=== PATIENT | female | born 1955 | race Caucasian/White ===

== ENCOUNTER 2018-07-05 20:16 | Observation (INO) | payer OTHER, SELFPAY ==
[2018-07-05] MEDS: NS 500 ML IV (21:02)
[2018-07-05] MEDS: HYDROMORPHONE HCL 0.5 MG/ 0.5 ML SYRINGE (J1170 PER 1) IV ×2 (21:03→22:20)
[2018-07-05 21:07] LABS: BASO % 0.3 % (0.0-1.0); EOS % 0.1 % (0.0-3.0); IMMATURE GRANULOCYTE % 0.4 % (0-3.0); LYMPH # 0.8 10^3/uL (1.5-4.5); LYMPH % 5.4 % (24.0-44.0); MEAN CORPUSCULAR HEMOGLOBIN 27.4 pg (27.0-33.0); MEAN CORPUSCULAR HGB CONC 31.7 g/dl (32.0-36.5); MEAN CORPUSCULAR VOLUME 86.5 fl (80.0-96.0); MONO # 0.7 10^3/uL (0.0-0.8); MONO % 4.3 % (0.0-5.0); NEUTROPHILS # 13.8 10^3/uL (1.8-7.7); NEUTROPHILS % 89.5 % (36.0-66.0); PLATELET COUNT, AUTOMATED 281 10^3/uL (150-450); RED BLOOD COUNT 4.74 10^6/uL (4.00-5.40); RED CELL DISTRIBUTION WIDTH 14.4 % (11.5-14.5); WHITE BLOOD COUNT 15.4 10^3/uL (4.0-10.0)
[2018-07-05 21:17] LABS: INR 0.98; PROTHROMBIN TIME 13.1 SECONDS (12.1-14.4)
[2018-07-05 21:18] LABS: PARTIAL THROMBOPLASTIN TIME 27.6 SECONDS (25.4-37.6)
[2018-07-05 21:29] LABS: ANION GAP 7 MEQ/L (8-16); BLOOD UREA NITROGEN 18 MG/DL (7-18); CALCIUM LEVEL 8.5 MG/DL (8.8-10.2); CARBON DIOXIDE LEVEL 28 MEQ/L (21-32); CHLORIDE LEVEL 110 MEQ/L (98-107); CREATININE FOR GFR 0.83 MG/DL (0.55-1.30); GLOMERULAR FILTRATION RATE > 60.0 (>45); GLUCOSE, FASTING 106 MG/DL (70-100); POTASSIUM SERUM 4.3 MEQ/L (3.5-5.1); SODIUM LEVEL 145 MEQ/L (136-145)
[2018-07-05] MEDS ORDERED: LIDOCAINE W/EPINEPHRINE 1% 20ML VIAL SC (22:15)
[2018-07-06] MEDS ORDERED: ONDANSETRON 4MG/2ML VIAL (J2405) IV ×3 (00:15→19:00)
[2018-07-06] MEDS: KETOROLAC 30 MG/ML VIAL (J1885) IV ×2 (02:27→14:31)
[2018-07-06] MEDS: PERCOCET 5MG/325MG TAB PO ×3 (09:57→22:53)
[2018-07-06] MEDS ORDERED: MIDAZOLAM INJ 2 MG/2 ML VIAL (J2250) As Ordered (16:49)
[2018-07-06] MEDS ORDERED: ROCURONIUM BROMIDE 50 MG/5 ML VIAL As Ordered (16:49)
[2018-07-06] MEDS: ceFAZolin 1GM INJ (J0690 PER 500MG) As Ordered (16:49)
[2018-07-06] MEDS ORDERED: LIDOCAINE 2% INJ 100 MG/5 ML SDV (FOR ANES.) As Ordered (16:49)
[2018-07-06] MEDS ORDERED: fentaNYL 250 MCG/5 ML INJECTION (J3010) As Ordered (16:49)
[2018-07-06] MEDS ORDERED: PROPOFOL 200 MG/20 ML VIAL As Ordered (16:52)
[2018-07-06] MEDS: BUPIVACAINE HCL 0.5% 30 ML VIAL As Ordered (17:04)
[2018-07-06] MEDS ORDERED: CHLOROPROCAINE 2 % INJ PRES.FREE 20 ML VIAL (J2400) As Ordered (17:29)
[2018-07-06] MEDS ORDERED: NORCO, ANEXSIA 5/325MG TABLET (HYDROcodone/ACETAMINOPHEN) PO (18:30)
[2018-07-06] MEDS ORDERED: fentaNYL 100 MCG/2 ML INJECTION (J3010) IV (18:30)
[2018-07-06] MEDS: LR 1,000 ML IV (18:30)
[2018-07-06] MEDS ORDERED: ACETAMINOPHEN 500 MG TAB PO (19:00)
[2018-07-06] MEDS ORDERED: FLEET ENEMA PR (19:00)
[2018-07-06] MEDS ORDERED: diphenhydrAMINE 25 MG CAP PO (19:00)
[2018-07-06] MEDS ORDERED: MORPHINE 4 MG/ML 1ML VIAL/SYRINGE (J2270) IV (19:00)
[2018-07-06] MEDS ORDERED: MIRALAX *UNIT DOSE* 17GM PACKET PO (19:00)
[2018-07-07] MEDS: VITAMIN D 1,000 INTERNATIONAL UNITS TABLET PO (08:46)
[2018-07-07] MEDS: ASPIRIN 325 MG TAB PO (08:46)
[2018-07-07] MEDS: ACETAMINOPHEN TAB 650MG DOSE (2X325MG) PO (08:47)
[2018-07-07] MEDS: PERCOCET 5MG/325MG TAB PO (11:56)
== END 2018-07-07 14:10 | disposition home or self-care (01) ==
LOC: M ED INP 20:17 → M MS5PR 07-06 15:25 → M ED 20:16
DX: S82.841A Displaced bimalleolar fracture of right lower leg, initial encounter for closed fracture (principal); Y92.89 Other specified places as the place of occurrence of the external cause; W19.XXXA Unspecified fall, initial encounter; J45.909 Unspecified asthma, uncomplicated; Z79.899 Other long term (current) drug therapy; Z98.84 Bariatric surgery status
CPT/HCPCS: 27842

== ENCOUNTER 2018-07-18 11:00 | Day surgery (SDC) | payer OTHER ==
[2018-07-18] MEDS ORDERED: LIDOCAINE 1% MDV 20ML VIAL (11:01)
[2018-07-18] MEDS ORDERED: dexameTHASONE 10 MG/1 ML VIAL PRES.FREE (J1100) (11:01)
[2018-07-18] MEDS ORDERED: ROPIvacaine 0.5% 30 ML INJECTION (J2795 PER 1MG) (11:01)
[2018-07-18] MEDS: LR 1,000 ML IV ×3 (11:59→20:30)
[2018-07-18] MEDS ORDERED: fentaNYL 100 MCG/2 ML INJECTION (J3010) As Ordered ×4 (13:46→16:37)
[2018-07-18] MEDS ORDERED: MIDAZOLAM INJ 2 MG/2 ML VIAL (J2250) As Ordered ×4 (13:47→16:37)
[2018-07-18] MEDS: MIDAZOLAM INJ 2 MG/2 ML VIAL (J2250) IV ×4 (14:15→14:29)
[2018-07-18] MEDS: fentaNYL 100 MCG/2 ML INJECTION (J3010) IV ×8 (14:15→20:33)
[2018-07-18] MEDS ORDERED: PROPOFOL 200 MG/20 ML VIAL As Ordered ×8 (16:37→19:25)
[2018-07-18] MEDS ORDERED: LIDOCAINE 2% INJ 100 MG/5 ML SDV (FOR ANES.) As Ordered (16:38)
[2018-07-18] MEDS ORDERED: ONDANSETRON 4MG/2ML VIAL (J2405) As Ordered ×2 (16:38→20:03)
[2018-07-18] MEDS ORDERED: dexameTHASONE 4 MG/ML 1ML VIAL (J1100) As Ordered ×3 (16:38→16:40)
[2018-07-18] MEDS: ceFAZolin 1GM INJ (J0690 PER 500MG) As Ordered (17:15)
[2018-07-18] MEDS ORDERED: BUPIVACAINE/DEXTROSE 0.75% 2 ML AMP As Ordered (17:30)
[2018-07-18] MEDS: BUPIVACAINE HCL 0.25% 10 ML VIAL As Ordered (19:25)
[2018-07-18] MEDS: PERCOCET 5MG/325MG TAB PO (20:00)
[2018-07-18] MEDS ORDERED: PERCOCET 5MG/325MG TAB As Ordered (20:01)
[2018-07-18] MEDS ORDERED: METOCLOPRAMIDE INJ 10MG/2ML VIAL (J2765) As Ordered (20:04)
[2018-07-18] MEDS: ONDANSETRON 4MG/2ML VIAL (J2405) IV (20:15)
[2018-07-18] MEDS: METOCLOPRAMIDE INJ 10MG/2ML VIAL (J2765) IV (20:20)
[2018-07-18] MEDS ORDERED: MORPHINE 2 MG/ML 1ML SYRINGE (J2270) IV (20:30)
[2018-07-18] MEDS ORDERED: METOCLOPRAMIDE INJ 10MG/2ML VIAL (J2765) IV (20:30)
[2018-07-18] MEDS ORDERED: ONDANSETRON 4MG/2ML VIAL (J2405) IV (20:30)
[2018-07-18] MEDS ORDERED: PERCOCET 5MG/325MG TAB PO (20:30)
[2018-07-19] MEDS: PERCOCET 5MG/325MG TAB PO (01:34)
[2018-07-19] MEDS: ASPIRIN ENTERIC 325 MG TAB PO (09:44)
== END 2018-07-19 11:15 | disposition home or self-care (01) ==
LOC: M SDC 11:00 → M MS5PR 21:05
DX: S82.841A Displaced bimalleolar fracture of right lower leg, initial encounter for closed fracture (principal); H40.009 Preglaucoma, unspecified, unspecified eye; J45.909 Unspecified asthma, uncomplicated; M12.9 Arthropathy, unspecified; R06.83 Snoring; T88.4XXD Failed or difficult intubation, subsequent encounter; E66.9 Obesity, unspecified; Z68.39 Body mass index [BMI] 39.0-39.9, adult; Z91.041 Radiographic dye allergy status; Z79.899 Other long term (current) drug therapy; Z79.82 Long term (current) use of aspirin; Z86.39 Personal history of other endocrine, nutritional and metabolic disease; X58.XXXA Exposure to other specified factors, initial encounter; Y92.89 Other specified places as the place of occurrence of the external cause; Y93.89 Activity, other specified; Y99.8 Other external cause status
CPT/HCPCS: 27814